=== PATIENT | male | born 1955 | race Caucasian/White ===

== ENCOUNTER 2016-09-12 16:36 | Observation (INO) | payer MEDICARE ==
[2016-09-12] VITALS (7 sets, daily range): BP systolic 115–153; BP diastolic 74–93; PULSE 82–96; RESP 18–22; TEMP 98.1–98.7; O2SAT 92–98
[~2016-09-12] VITALS: Ht 175.3 cm; Wt 103.0 kg
[~2016-09-12 16:36] MED LIST: ADVA500A INH; ASPI-110 PO; ATOR20TA15 PO; CLOP75TA PO; CYCL1TAB29 PO; FOLI1TAB4 PO; HYDR-3583 PO; HYDR200T3 PO; HYDR25TA5 PO; LISI-515 PO; METF-382 PO; METO25TA3 PO; MYCO500 PO; OMEP20TA PO; TAMS5CAP PO; VITA200013 PO
[2016-09-12] MEDS ORDERED: SODIUM CHLORIDE 0.9% FLUSH 10 ML FLUSH IVF PRN (16:45)
[2016-09-12] MEDS ORDERED: ASPIRIN 325 MG TAB PO ONE (16:45)
--- NOTE | 2016-09-12 17:32 | RADRPT ---
EXAM DATE/TIME: 09/12/2016 17:05 [place] COMPARISON: CHEST SINGLE AP, March 29, 2015, 15:58. INDICATIONS : Chest pain. MEDICAL HISTORY : Unobtainable. SURGICAL HISTORY : Unobtainable. ENCOUNTER: Initial ACUITY: 3 days PAIN SCORE: 5/10 LOCATION: Bilateral chest FINDINGS: A single view of the chest demonstrates the lungs to be symmetrically aerated without evidence of mas s, infiltrate or effusion. The cardiomediastinal contours are unremarkable. Osseous structures are intact. CONCLUSION: No acute disease. Gary Alexandre MD on September 12, 2016 at 17:30 Board Certified Radiologist. This report was verified electronically.
[2016-09-12 17:52] LABS: BASOPHIL % 0.5 % (0.0-2.0); EOSINOPHIL # 0.1 TH/MM3 (0-0.4); EOSINOPHIL % 0.7 % (0.0-4.0); HEMATOCRIT 36.5 % (39.0-51.0); HEMO FLAGS DIFF FINAL; LYMPH % 12.9 % (9.0-44.0); MEAN CELL VOLUME 85.7 FL (80.0-100.0); MEAN CORPUSCULAR HEMOGLOBIN 29.2 PG (27.0-34.0); MEAN CORPUSCULAR HGB CONC 34.1 % (32.0-36.0); NEUT % 76.9 % (16.0-70.0); PLATELET COUNT 194 TH/MM3 (150-450); RED BLOOD COUNT 4.26 MIL/MM3 (4.50-5.90); RED CELL DISTRIBUTION WIDTH 13.7 % (11.6-17.2); WHITE BLOOD COUNT 7.8 TH/MM3 (4.0-11.0)
[2016-09-12 18:05] LABS: APTT (PATIENT) 28.4 SEC (24.3-30.1); PROTHROMBIN TIME - PATIENT 10.9 SEC (9.8-11.6)
[2016-09-12 18:12] LABS: ANION GAP 7 MEQ/L (5-15); BICARBONATE 29.3 MEQ/L (21.0-32.0); BLOOD UREA NITROGEN 15 MG/DL (7-18); CHLORIDE 102 MEQ/L (98-107); GLOMERULAR FILTRATION RATE 83 ML/MIN (>89); MAGNESIUM 1.1 MG/DL (1.5-2.5); POTASSIUM 3.5 MEQ/L (3.5-5.1); SODIUM (NA) 138 MEQ/L (136-145)
[2016-09-12 18:16] LABS: CREATINE KINASE 184 U/L (39-308)
[2016-09-12 18:28] LABS: CKMB 1.1 NG/ML (0.5-3.6)
--- NOTE | 2016-09-12 18:28 | PD ---
HPI Chief Complaint: Chest Pain Time Seen by Provider: 18:28 Travel History International Travel<30 days: No Contact w/Intl Traveler<30days: No Traveled to known affect area: No History of Present Illness HPI 60-year-old male that presents to the ED for evaluation of chest pain. Patient came here by ambulance for evaluation of this. Patient states that his history of coronary artery disease with having had a STEMI in 2015. Patient has stents performed by Dr. Coon who is his supervisor records change. The patient the pain started around 10:00 any progressively gotten worse. Per patient when he started getting more severe and sharp he contacted the ambulance. Per patient by ambulance he was given 4 nitroglycerin's as well as aspirin with relief of his pain. Per patient the pain went from 8 to 2/10. He states that overall he felt better but the pain now appears to be more positional and gets worse when he takes deep breath as well as when he lays down. He has a history of lupus, hypertension, diabetes, previous history of smoking. Allergy to morphine. He denies any recent trauma or injury. No recent travel. No fevers chills or sweats. Per patient he went to see his doctor about 4-6 months ago and was told that everything was fine. He does not take any anticoagulation. PFSH Past Medical History Hx Anticoagulant Therapy: Yes (ASPIRIN ) Arthritis: Yes Asthma: Yes Autoimmune Disease: Yes (LUPUS) Blood Disorders: No Anxiety: No Depression: No Heart Rhythm Problems: No Cancer: No Cardiac Catheterization: Yes (STENT) Cardiovascular Problems: Yes (OK ) High Cholesterol: Yes Congestive Heart Failure: No Diabetes: Yes Patient Takes Glucophage: Yes Diminished Hearing: Yes Endocrine: Yes GERD: Yes Genitourinary: No Hiatal Hernia: Yes Hypertension: Yes Immune Disorder: Yes (LUPUS) Implanted Vascular Access Dvce: No Musculoskeletal: Yes Neurologic: No Psychiatric: Yes (CLAUSTRoPHOBIA) Reproductive: No Respiratory: Yes (pleuritis and pericarditis per the pt) Immunizations Current: Yes Tetanus Vaccination: Unknown Influenza Vaccination: Yes ?: Not Past Surgical History Abdominal Surgery: Yes (RIGHT ING. HERNIA REP. (X3), APPY) AICD: No Appendectomy: Yes Arteriovenous Shunt: No (stent) Body Medical Devices: LUMBAR HARDWARE, CARDIAC STENT, BACK FUSION Coronary Artery Bypass Graft: No Insulin Pump: No Joint Replacement: No Neurologic Surgery: Yes (MULTIPLE BACK SURGERIES, LUMBAR FUSION) Pacemaker: No Other Surgery: Yes Social History Alcohol Use: Yes (OCC.) Tobacco Use: No Substance Use: No Allergies-Medications (Allergen,Severity, Reaction): Coded Allergies: Morphine (Verified Allergy, Severe, Respiratory Failure, 08/08/16) Reported Meds & Prescriptions Reported Meds & Active Scripts Active Flomax (Tamsulosin HCl) 0.4 Mg Cap 0.4 Mg PO HS Reported Cellcept (Mycophenolate Mofetil) 500 Mg Tab 500 Mg PO BID Vitamin D (Cholecalciferol) 2,000 Unit Cap 2,000 Mg PO DAILY Hydrochlorothiazide 25 Mg Tab 25 Mg PO DAILY Atorvastatin (Atorvastatin Calcium) 20 Mg Tab 20 Mg PO HS Metoprolol Tartrate 25 Mg Tab 25 Mg PO BID Aspirin 81 (Aspirin) 81 Mg Tabdr 81 Mg PO DAILY Folate (Folic Acid) 1 Mg Tab 1 Mg PO DAILY Advair Diskus Inh (Fluticasone-Salmeterol Inh) 500-50 Mcg/Blist Aer 1 Puff INH BID Rinse mouth after use. Hydroxychloroquine (Hydroxychloroquine Sulfate) 200 Mg Tab 200 Mg PO BID Takw with food Lisinopril 20 Mg Tab 20 Mg PO DAILY Omeprazole 20 Mg Tab 20 Mg PO DAILY Flexeril (Cyclobenzaprine HCl) 10 Mg Tab 10 Mg PO Q8HR Metformin ER (Metformin HCl) 1,000 Mg Tj 1,000 Mg PO BID With evening meal Hydrocodone-Acetaminophen 10-325 mg Tab 1 Tab PO Q8HR PRN Review of Systems Except as stated in HPI: all other systems reviewed are Neg Physical Exam Narrative GENERAL: SKIN: Warm and dry. HEAD: Atraumatic. Normocephalic. EYES: Pupils equal and round. No scleral icterus. No injection or drainage. ENT: No nasal bleeding or discharge. Mucous membranes pink and moist. Tongue is midline. No uvula deviation. NECK: Trachea midline. No JVD. CARDIOVASCULAR: Regular rate and rhythm. No murmurs, S3, S4. Chest pain is not reproducible with touch. RESPIRATORY: No accessory muscle use. Clear to auscultation. Breath sounds equal bilaterally. GASTROINTESTINAL: Abdomen soft, non-tender, nondistended. Hepatic and splenic margins not palpable. MUSCULOSKELETAL: Extremities without clubbing, cyanosis, or edema. No obvious deformities. Full range of motion of the upper and lower extremities bilaterally. 2+ pulses bilaterally. NEUROLOGICAL: Awake and alert. No obvious cranial nerve deficits. Motor grossly within normal limits. Five out of 5 muscle strength in the arms and legs. Normal speech. PSYCHIATRIC: Appropriate mood and affect; insight and judgment normal. Data Data Last Documented VS Vital Signs Date Time Temp Pulse Resp B/P Pulse Ox O2 Delivery O2 Flow Rate FiO2 09/12/16 17:30 88 22 127/74 98 Nasal Cannula 4 09/12/16 16:55 98.7 Orders Electrocardiogram (09/12/16 16:41) Basic Metabolic Panel (Bmp) (09/12/16 16:41) Ckmb (Isoenzyme) Profile (09/12/16 16:41) Complete Blood Count With Diff (09/12/16 16:41) Magnesium (Mg) (09/12/16 16:41) Prothrombin Time / Inr (Pt) (09/12/16 16:41) Act Partial Throm Time (Ptt) (09/12/16 16:41) Troponin I (09/12/16 16:41) Chest, Single Ap (09/12/16 16:41) Ecg Monitoring (09/12/16 16:41) Bilateral Bp Monitoring (09/12/16 16:41) Iv Access Insert/Monitor (09/12/16 16:41) Oximetry (09/12/16 16:41) Oxygen Administration (09/12/16 16:41) Aspirin (Aspirin) (09/12/16 16:45) Sodium Chloride 0.9% Flush (Ns Flush) (09/12/16 16:45) CKMB (09/12/16 17:07) CKMB% (09/12/16 17:07) Labs Laboratory Tests Test 09/12/16 17:07 White Blood Count 7.8 TH/MM3 Red Blood Count 4.26 MIL/MM3 Hemoglobin 12.4 GM/DL Hematocrit 36.5 % Mean Corpuscular Volume 85.7 FL Mean Corpuscular Hemoglobin 29.2 PG Mean Corpuscular Hemoglobin 34.1 % Concent Red Cell Distribution Width 13.7 % Platelet Count 194 TH/MM3 Mean Platelet Volume 7.3 FL Neutrophils (%) (Auto) 76.9 % Lymphocytes (%) (Auto) 12.9 % Monocytes (%) (Auto) 9.0 % Eosinophils (%) (Auto) 0.7 % Basophils (%) (Auto) 0.5 % Neutrophils # (Auto) 6.0 TH/MM3 Lymphocytes # (Auto) 1.0 TH/MM3 Monocytes # (Auto) 0.7 TH/MM3 Eosinophils # (Auto) 0.1 TH/MM3 Basophils # (Auto) 0.0 TH/MM3 CBC Comment DIFF FINAL Differential Comment Prothrombin Time 10.9 SEC Prothromb Time International 1.0 RATIO Ratio Activated Partial 28.4 SEC Thromboplast Time Sodium Level 138 MEQ/L Potassium Level 3.5 MEQ/L Chloride Level 102 MEQ/L Carbon Dioxide Level 29.3 MEQ/L Anion Gap 7 MEQ/L Blood Urea Nitrogen 15 MG/DL Creatinine 0.93 MG/DL Estimat Glomerular Filtration 83 ML/MIN Rate Random Glucose 114 MG/DL Calcium Level 8.9 MG/DL Magnesium Level 1.1 MG/DL Total Creatine Kinase 184 U/L Creatine Kinase MB 1.1 NG/ML Troponin I LESS THAN 0.02 NG/ML MDM Medical Decision Making Medical Screen Exam Complete: Yes Emergency Medical Condition: Yes Medical Record Reviewed: Yes Interpretation(s) EKG showed junctional rhythm with no sign of acute ischemia or arrhythmia read by me and attending. CBC & BMP Diagram 09/12/16 17:07 Troponin and CK-MB negative. Last Impressions Chest X-Ray 09/12/16 1641 Signed Impressions: Service Date/Time: Saturday, September 12, 2016 17:05 - CONCLUSION: No acute disease. Gary Alexandre MD Differential Diagnosis Chest pain versus a typical chest pain versus ACS versus coronary artery disease versus electrolyte abnormality versus pneumonia versus pleurisy Narrative Course 60-year-old male that presents to the ED for evaluation of chest pain. Patient was properly examined and was found to have signs and symptoms concerning for coronary artery disease. Labs and imaging were ordered. Labs and EKG were essentially unremarkable. A call was placed to Dr. Coon his supervisor records change. Unfortunately we were not able to get a call back from him. At this time because of patient's risk factors and comorbidities and the recommend admission to the chest pain center. This was discussed with the patient who agrees to admission. Case discussed in my attending who agrees with plan. Patient was admitted to the chest pain center. Procedures EKG Prior to Arrival: Yes Diagnosis Primary Impression: Chest pain Qualified Code: R07.9 - Chest pain, unspecified type Admitting Information Admitting Physician Requests: Observation Jorden Branch Sep 12, 2016 18:28
[2016-09-12] MEDS ORDERED: ACETAMINOPHEN/HYDROcodone 325 MG/5 MG TAB PO ONE (19:30)
[2016-09-12] MEDS ORDERED: NITROGLYCERIN 0.4 MG SL 25 TABS/BTL SL ONE (19:30)
[2016-09-12] MEDS ORDERED: DEXAMETHASONE SOD PHOS 20 MG/5 ML VIAL IV PUSH ONE (19:30)
[2016-09-12] MEDS ORDERED: ACETAMINOPHEN 500 MG CPLT PO PRN (19:30)
[2016-09-12] MEDS ORDERED: ACETAMINOPHEN/HYDROcodone 325 MG/7.5 MG TAB PO PRN (19:30)
[2016-09-12 20:18] LABS: CREATINE KINASE 167 U/L (39-308)
[2016-09-12 20:30] LABS: CKMB 0.6 NG/ML (0.5-3.6)
[2016-09-12] MEDS: NITROGLYCERIN 2% OINT 1 GM PACKET TOP SCH (23:37)
[2016-09-12 23:53] LABS: CREATINE KINASE 147 U/L (39-308)
[2016-09-13 00:07] LABS: CKMB 0.8 NG/ML (0.5-3.6)
[2016-09-13 04:00] VITALS: BP 125/80; PULSE 73
[2016-09-13] MEDS: NITROGLYCERIN 2% OINT 1 GM PACKET TOP SCH (06:00)
[2016-09-13 07:47] VITALS: BP 129/79; PULSE 69; RESP 18; TEMP 97.4; O2SAT 96
[2016-09-13] MEDS ORDERED: NITROGLYCERIN 0.4 MG SL 25 TABS/BTL SL PRN (09:00)
[2016-09-13] MEDS ORDERED: ACETAMINOPHEN 500 MG CPLT PO PRN (09:00)
[2016-09-13] MEDS ORDERED: ONDANSETRON HCL 4 MG/2 ML VIAL IV PRN (09:00)
[2016-09-13] MEDS ORDERED: ACETAMINOPHEN/HYDROcodone 325 MG/10 MG TAB PO ONE (09:15)
--- NOTE | 2016-09-13 09:36 | HHI.HP ---
HPI Primary Care Physician Kvng Jacobsen MD, PhD Chief Complaint Chest pain History of Present Illness 60-year-old patient with known coronary artery disease, hypertension, diabetes, hyperlipidemia, and lupus presents to emergency room for further evaluation of chest discomfort. Onset yesterday at 10 AM. Location substernal. Characterized as a sharp constant pain that increased over time. Duration hours. Nonexertional. Associated symptoms included "lightheadedness and shaky. " Denies associated symptoms of nausea, vomiting, or diaphoresis. Breathing makes pain worse. No precipitating factors. Received nitroglycerin 4 in route without relief. Relieving factors he states was "steroid shot provided in the ER." Currently chest discomfort 06/12. Initially chest discomfort was 8/ 10. Endorses history of pleurisy. Due to his history of coronary artery disease he was concerned and came to the ER for further evaluation, however now states he believes chest discomfort was related to pleurisy as he has had 3 episodes of pleurisy recently. History of lupus his bank messenger is Dr. Hampton. Review of Systems General: No fatigue,weakness, fever, chills, recent illness, or change in appetite HEENT: No CISNEROS, no vision changes, no nasal congestion or drainage, no dysphasia CV: As stated above. Currently mild chest pain 1, much improved since receiving steroid injection. Chest discomfort prior to cardiac catheterization in 2014 included diaphoresis and shortness of breath with chest discomfort similar to his pleurisy but more severe. No pressure, palpitations, intermittent leg pain, or dizziness. RESP: No SOB, cough, wheeze, or recent URI GI: No nausea, vomiting, bowel changes, diarrhea, constipation, pain, distention , melena, blood in the stool. No unintentional weight gain or weight loss : No dysuria, urgency, frequency EXT: No lower leg edema, no paraesthesias MS: No discomfort or change in ROM NEURO: No change in memory, dizziness, difficulty with balance, LOC, motor/ sensory deficits PSYCH: No anxiety or depression, SKIN: No rashes, no concerning lesions Past Family Social History Allergies: Coded Allergies: Morphine (Verified Allergy, Severe, Respiratory Failure, 08/08/16) Past Medical History Coronary artery disease, lupus, diabetes, hypertension, arthritis, hyperlipidemia Past Surgical History Appendectomy, 4 hernia repairs, 4 back surgeries, 2 back fusions, right hip repair Reported Medications Reported Meds & Active Scripts Active Flomax (Tamsulosin HCl) 0.4 Mg Cap 0.4 Mg PO HS Cellcept (Mycophenolate Mofetil) 500 Mg Tab 500 Mg PO BID Vitamin D (Cholecalciferol) 2,000 Unit Cap 2,000 Mg PO DAILY Hydrochlorothiazide 25 Mg Tab 25 Mg PO DAILY Atorvastatin (Atorvastatin Calcium) 20 Mg Tab 20 Mg PO HS Metoprolol Tartrate 25 Mg Tab 25 Mg PO BID Aspirin 81 (Aspirin) 81 Mg Tabdr 81 Mg PO DAILY Folate (Folic Acid) 1 Mg Tab 1 Mg PO DAILY Advair Diskus Inh (Fluticasone-Salmeterol Inh) 500-50 Mcg/Blist Aer 1 Puff INH BID Rinse mouth after use. Hydroxychloroquine (Hydroxychloroquine Sulfate) 200 Mg Tab 200 Mg PO BID Takw with food Lisinopril 20 Mg Tab 20 Mg PO DAILY Omeprazole 20 Mg Tab 20 Mg PO DAILY Flexeril (Cyclobenzaprine HCl) 10 Mg Tab 10 Mg PO Q8HR Metformin ER (Metformin HCl) 1,000 Mg Tj 1,000 Mg PO BID With evening meal Hydrocodone-Acetaminophen 10-325 mg Tab 1 Tab PO Q8HR PRN Active Ordered Medications Current Medications Medications (Trade) Dose Ordered Sig/Lucila Route Start Time Stop Time Status Last Admin (Tylenol) 500 mg Q4H PRN PO 09/12/16 19:30 ([place] 7.5-325 Mg) 1 tab Q4H PRN PO 09/12/16 19:30 (Tylenol) 500 mg Q4H PRN PO 09/13/16 09:00 (Zofran Inj) 4 mg Q6H PRN IV 09/13/16 09:00 (Nitrostat Sl) 0.4 mg Q5M PRN SL 09/13/16 09:00 (Aspirin) 325 mg DAILY PO 09/13/16 10:00 (Lipitor) 20 mg HS PO 09/13/16 21:00 (Folate) 1 mg DAILY PO 09/13/16 09:00 UNV (Hydrodiuril) 25 mg DAILY PO 09/13/16 09:00 UNV (Plaquenil) 200 mg BID PO 09/13/16 09:00 UNV (Prinivil) 20 mg DAILY PO 09/13/16 09:00 UNV (Cellcept) 500 mg BID PO 09/13/16 09:00 UNV (Flomax) 0.4 mg HS PO 09/13/16 21:00 UNV Non-Formulary Medication 2,000 mg DAILY PO 09/13/16 09:00 UNV Non-Formulary Medication 1 puff BID INH 09/13/16 09:00 UNV Non-Formulary Medication 1,000 mg BID PO 09/13/16 09:00 UNV Non-Formulary Medication 20 mg DAILY PO 09/13/16 09:00 UNV Social History , disabled, Quit smoking in 2003prior to quitting, smoked 2 packs daily 33 years. Denies any alcohol or illegal drug use. Active as he is able with his chronic back pain. Past cardiac testing 03/29/15-cardiac catheterization. 1. PTCA and stenting of a totally occluding RCA. 2. Preserved LV function. 3. Mild nonobstructive disease in the LAD and circumflex arteries. No recent stress testing. 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 Codey Coon. Physical Exam Vital Signs Vital Signs Date Time Temp Pulse Resp B/P Pulse Ox O2 Delivery O2 Flow Rate FiO2 09/13/16 07:47 97.4 69 18 129/79 96 09/13/16 04:00 73 125/80 09/12/16 22:55 98.1 82 18 115/75 98 09/12/16 20:29 14 09/12/16 20:10 98.6 88 18 133/75 98 09/12/16 19:59 98 Nasal Cannula 4.00 09/12/16 19:14 96 22 153/93 98 Nasal Cannula 4 09/12/16 17:30 88 22 127/74 98 Nasal Cannula 4 09/12/16 16:55 22 98 Nasal Cannula 4 09/12/16 16:55 98 Nasal Cannula 4 09/12/16 16:55 98.7 90 22 132/75 98 Nasal Cannula 4 09/12/16 16:55 92 22 99 Nasal Cannula 4 09/12/16 16:45 98.7 92 20 132/75 92 Physical Exam GENERAL: Alert WN, WD, NAD, pleasant, male HEAD: NC, AT EYES: Sclera clear, conjunctiva without injection, pupils equal and round NECK: Supple, no masses, trachea midline CV: RRR, without murmur, rub, gallop, no JVD, S1-S2 no S3-S4. RESP: Clear lungs throughout bilateral, no crackles, wheeze, rhonchi, symmetrical chest rise, nonlabored, able to speak in full sentences ABD: Soft, NT, ND, no masses, positive bowel tones EXT: Pulses +24, no dependent edema MS: Normal tone 4 extremities, nontender, no obvious deformities, full range of motion NEURO: CN II through CN XII grossly intact, motor strength 5/5, gait WNL PSYCH: A+O 3, pleasant affect, appropriate speech, appropriate mood and affect , insight and judgment SKIN: Normal turgor, normal texture, no lesions, no rashes, brisk cap refill, even hair distribution Laboratory Laboratory Tests Test 09/12/16 09/12/16 09/12/16 17:07 19:45 22:51 White Blood Count 7.8 Red Blood Count 4.26 Hemoglobin 12.4 Hematocrit 36.5 Mean Corpuscular Volume 85.7 Mean Corpuscular Hemoglobin 29.2 Mean Corpuscular Hemoglobin 34.1 Concent Red Cell Distribution Width 13.7 Platelet Count 194 Mean Platelet Volume 7.3 Neutrophils (%) (Auto) 76.9 Lymphocytes (%) (Auto) 12.9 Monocytes (%) (Auto) 9.0 Eosinophils (%) (Auto) 0.7 Basophils (%) (Auto) 0.5 Neutrophils # (Auto) 6.0 Lymphocytes # (Auto) 1.0 Monocytes # (Auto) 0.7 Eosinophils # (Auto) 0.1 Basophils # (Auto) 0.0 CBC Comment DIFF FINAL Differential Comment Prothrombin Time 10.9 Prothromb Time International 1.0 Ratio Activated Partial 28.4 Thromboplast Time Sodium Level 138 Potassium Level 3.5 Chloride Level 102 Carbon Dioxide Level 29.3 Anion Gap 7 Blood Urea Nitrogen 15 Creatinine 0.93 Estimat Glomerular Filtration 83 Rate Random Glucose 114 Calcium Level 8.9 Magnesium Level 1.1 Total Creatine Kinase 184 167 147 Creatine Kinase MB 1.1 0.6 0.8 Troponin I LESS THAN 0.02 LESS THAN 0.02 LESS THAN 0.02 Result Diagram: 09/12/16 1707 09/12/16 170 Imaging Last Impressions Chest X-Ray 09/12/16 1641 Signed Impressions: Service Date/Time: Monday, September 12, 2016 17:05 - CONCLUSION: No acute disease. Gary Alexandre MD Course EKGs 3 EKG show normal sinus rhythm, inferior RI, no ST or T-segment changes Assessment and Plan Assessment and Plan #1 Chest painadmitted to chest pain center. Ruled out with 3 sets of EKGs, cardiac enzymes, and monitored overnight. Seen and evaluated by Dr. Pina Ibarra. Patient has had a recent cardiac catheterization pared with atypical symptoms Dr Ibarra discussed with patient possible discharge after notifying his petroleum supply specialist of arrival. Spoke with patient's petroleum supply specialist , Dr. Codey Coon. Methane Gas Collection System Operator okay with discharge as chest discomfort is not similar to chest discomfort prior to cardiac catheterization and chest discomfort improved with Decadron. Instructed to return to ER if chest pain worsens. #2 Pleurisy-Medrol Dosepak, follow with PCP and bank messenger #3 Lupuscontinue Plaquenil and CellCept #4 Hypertensioncontinue HCTZ and lisinopril #5 CADcontinue aspirin, atorvastatin, and Metoprolol. Follow up with petroleum supply specialist. #6 Diabetescontinue metformin #7 Chronic back paincontinue hydrocodone/[id number]/325mg 1 dose. Kayla Estrada Sep 13, 2016 09:36
[2016-09-13] MEDS ORDERED: MEDR4PAK PO (09:47)
--- NOTE | 2016-09-13 09:48 | HHI.DCPOC ---
Discharge Care Plan Diagnosis: (1) Atypical chest pain (2) History of pleurisy (3) Hx of coronary artery disease (4) SLE (systemic lupus erythematosus) (5) HTN (hypertension) (6) DM (diabetes mellitus) Goals to Promote Your Health * To prevent worsening of your condition and complications * To maintain your health at the optimal level Directions to Meet Your Goals Take your medications as prescribed Follow your dietary instruction Follow activity as directed Keep your appointments as scheduled Take your immunizations and boosters as scheduled If your symptoms worsen call your PCP, if no PCP go to Urgent Care Center or Emergency Room Smoking is Dangerous to Your Health. Avoid second hand smoke Call the 24-hour hour crisis hotline for domestic abuse at Kayla Estrada Sep 13, 2016 09:48
[2016-09-13] MEDS ORDERED: FOLIC ACID 1 MG TAB PO SCH (10:00)
[2016-09-13] MEDS ORDERED: ASPIRIN 325 MG TAB PO SCH (10:00)
[2016-09-13] MEDS ORDERED: CHOLECALCIFEROL (VIT D3) 1000 UNIT TAB PO SCH (10:00)
[2016-09-13] MEDS ORDERED: metFORMIN HCL 500 MG TAB PO SCH (10:00)
[2016-09-13] MEDS ORDERED: LISINOPRIL 20 MG TAB PO SCH (10:00)
[2016-09-13] MEDS ORDERED: HYDROXYCHLOROQUINE SULFATE 200 MG TAB PO SCH (10:00)
[2016-09-13] MEDS ORDERED: HYDROCHLOROTHIAZIDE 25 MG TAB PO SCH (10:00)
[2016-09-13] MEDS ORDERED: MYCOPHENOLATE MOFETIL 500 MG TAB PO SCH (10:00)
[2016-09-13] MEDS ORDERED: PANTOPRAZOLE SOD 20 MG DELAYED RELEASE TAB PO SCH (10:15)
[2016-09-13] MEDS ORDERED: BUDESONIDE-FORMOTEROL 160/4.5 MCG INHALER INH SCH (11:00)
[2016-09-13] MEDS ORDERED: ATORVASTATIN 20 MG TAB PO SCH (21:00)
[2016-09-13] MEDS ORDERED: TAMSULOSIN HCL 0.4 MG CAP PO SCH (21:00)
--- NOTE | 2016-09-14 11:39 | EKG ---
Date Performed: 09/12/2016 Time Performed: 23:04:04 PTAGE: 60 years EKG: Sinus rhythm POSSIBLE LATERAL MYOCARDIAL INFARCTION INFERIOR MYOCARDIAL INFARCTION ABNORMAL ECG Since PREVIOUS TRACING , no significant change noted PREVIOUS TRACIN09/12/2016 19.49 DOCTOR: Pina Ibarra Interpretating Date/Time 09/14/2016 11:37:54
--- NOTE | 2016-09-14 11:40 | EKG ---
Date Performed: 09/12/2016 Time Performed: 19:49:56 PTAGE: 60 years EKG: Ectopic atrial rhythm INFERIOR MYOCARDIAL INFARCTION ABNORMAL ECG PREVIOUS TRACING : 09/12/2016 17.05 DOCTOR: Pina Ibarra Interpretating Date/Time 09/14/2016 11:39:27
--- NOTE | 2016-09-14 11:40 | EKG ---
Date Performed: 09/12/2016 Time Performed: 17:05:31 PTAGE: 60 years EKG: Ectopic atrial rhythm INFERIOR MYOCARDIAL INFARCTION ABNORMAL ECG Since PREVIOUS TRACING , no significant change noted PREVIOUS TRACIN03/30/2015 05.58 DOCTOR: Pina Ibarra Interpretating Date/Time 09/14/2016 11:39:06
[2016-10-08] MEDS ORDERED: TAMS5CAP PO (09:11)
== END 2016-09-13 11:05 | disposition home or self-care (01) ==
LOC: NEPE 16:36 → NEDA 19:15 → NEPFCDU 19:58
PROVIDERS: ADMIT Internal Medicine Cardiovascular Disease; ATTEND Internal Medicine Cardiovascular Disease
DX: R07.89 Other chest pain (principal); I25.10 Atherosclerotic heart disease of native coronary artery without angina pectoris; E11.9 Type 2 diabetes mellitus without complications; I10 Essential (primary) hypertension; R09.1 Pleurisy; M32.9 Systemic lupus erythematosus, unspecified; G89.29 Other chronic pain; M54.9 Dorsalgia, unspecified; E78.5 Hyperlipidemia, unspecified; I25.2 Old myocardial infarction; M19.90 Unspecified osteoarthritis, unspecified site; H91.90 Unspecified hearing loss, unspecified ear; E78.00 Pure hypercholesterolemia, unspecified; K21.9 Gastro-esophageal reflux disease without esophagitis; J45.909 Unspecified asthma, uncomplicated; Z79.51 Long term (current) use of inhaled steroids; Z88.5 Allergy status to narcotic agent; Z87.891 Personal history of nicotine dependence; Z79.82 Long term (current) use of aspirin; Z79.84 Long term (current) use of oral hypoglycemic drugs
CPT/HCPCS: 71010; 80048; 82550; 82552; 83735; 84484; 85025; 85610; 85730; 93005; 99285; G0378; J1100

== ENCOUNTER 2017-04-12 05:34 | Emergency (ER) | payer MEDICARE ==
[~2017-04-12] VITALS: Ht 175.3 cm; Wt 100.0 kg
[~2017-04-12 05:34] MED LIST changes: -ASPI-110 PO; +ASPI1TAB57 PO; -CLOP75TA PO; +CYCL10TA PO; -CYCL1TAB29 PO; -OMEP20TA PO; +OMEP20TA93 PO
[2017-04-12 05:36] VITALS: BP 202/94; PULSE 85; RESP 20; TEMP 97.7; O2SAT 99
[2017-04-12] MEDS ORDERED: KETOROLAC TROMETHAMINE 30 MG/ML (IVP) VIAL IV PUSH ONE (05:45)
[2017-04-12] MEDS ORDERED: SODIUM CHLOR 0.9% 1000 ML INJ 1,000 ML IV ONE (05:45)
[2017-04-12] MEDS ORDERED: FOLI400T PO (05:54)
[2017-04-12 06:25] VITALS: BP 140/68; PULSE 78; RESP 16; O2SAT 97
--- NOTE | 2017-04-12 06:30 | PD ---
HPI Chief Complaint: Abdominal Pain Time Seen by Provider: 05:37 Travel History International Travel<30 days: No Contact w/Intl Traveler<30days: No Traveled to known affect area: No History of Present Illness HPI Patient is a 60-year-old man sudden onset of severe lower abdominal pain right above his pubic symphysis>> he has a history of having some back issues and he said his had worsening of his back lumbar pain>> but this is a sudden onset and different in nature . he has multiple medical issues and he has a chronic pain issue as well> In the ER he is writhing in pain turning side to side in the stretcher running a comfortable position. He present the way kidney stones present . He has had a kidney stone in the past and he presents as if he will have a kidney stone again> I order IV fluid Toradol [address] ordered right away labs will be ordered. Pain is localized to lower abdo no radiation took nothing for the pain , has not seen another MD for this pain, started Just HAIR CUTTER PFSH Past Medical History Hx Anticoagulant Therapy: Yes (ASPIRIN ) Arthritis: Yes Asthma: Yes Autoimmune Disease: Yes (LUPUS) Blood Disorders: No Anxiety: No Depression: No Heart Rhythm Problems: No Cancer: No Cardiac Catheterization: Yes (STENT X2) Cardiovascular Problems: Yes High Cholesterol: Yes Chest Pain: Yes Congestive Heart Failure: No Diabetes: No Diminished Hearing: Yes ([place]) Endocrine: Yes GERD: Yes Genitourinary: No Hiatal Hernia: Yes Hypertension: Yes Immune Disorder: Yes (LUPUS) Implanted Vascular Access Dvce: No Musculoskeletal: Yes Neurologic: No Psychiatric: Yes (CLAUSTRoPHOBIA) Reproductive: No Respiratory: Yes (pleuritis and pericarditis per the pt) Immunizations Current: Yes Tetanus Vaccination: Unknown Past Surgical History Abdominal Surgery: Yes (RIGHT ING. HERNIA REP. (X3), APPY) AICD: No Appendectomy: Yes Arteriovenous Shunt: No (stent) Body Medical Devices: LUMBAR HARDWARE, CARDIAC STENT, BACK FUSION Coronary Artery Bypass Graft: No Insulin Pump: No Joint Replacement: No Neurologic Surgery: Yes (MULTIPLE BACK SURGERIES, LUMBAR FUSION) Pacemaker: No Other Surgery: Yes Family History Family Myocardial Infarction: Yes (Father had VT ) Social History Alcohol Use: Yes (OCC.) Tobacco Use: No Substance Use: No Allergies-Medications (Allergen,Severity, Reaction): Coded Allergies: morphine (Unverified Allergy, Severe, Respiratory Failure, 04/12/17) Reported Meds & Prescriptions Reported Meds & Active Scripts Active Naproxen 375 Mg Tab 375 Mg PO BID K-Tab (Potassium Chloride) 10 Meq Tab 10 Meq PO BID Flomax (Tamsulosin HCl) 0.4 Mg Cap 0.4 Mg PO HS Reported Folic Acid 0.4 Mg Tab 1 Mg PO DAILY Cellcept (Mycophenolate Mofetil) 500 Mg Tab 500 Mg PO BID Vitamin D (Cholecalciferol) 2,000 Unit Cap 2,000 Mg PO DAILY Hydrochlorothiazide 25 Mg Tab 25 Mg PO DAILY Atorvastatin (Atorvastatin Calcium) 20 Mg Tab 20 Mg PO HS Metoprolol Tartrate 25 Mg Tab 25 Mg PO BID Aspirin 81 (Aspirin) 81 Mg Tabdr 81 Mg PO DAILY Advair Diskus Inh (Fluticasone-Salmeterol Inh) 500-50 Mcg/Blist Aer 1 Puff INH BID Rinse mouth after use. Hydroxychloroquine (Hydroxychloroquine Sulfate) 200 Mg Tab 200 Mg PO BID Takw with food Lisinopril 20 Mg Tab 20 Mg PO DAILY Omeprazole 20 Mg Tab 20 Mg PO DAILY Flexeril (Cyclobenzaprine HCl) 10 Mg Tab 10 Mg PO Q8HR Metformin ER (Metformin HCl) 1,000 Mg Tj 1,000 Mg PO BID With evening meal Hydrocodone-Acetaminophen 10-325 mg Tab 1 Tab PO Q8HR PRN Review of Systems Except as stated in HPI: all other systems reviewed are Neg Gastrointestinal: Positive: Nausea, Abdominal Pain Physical Exam Narrative GENERAL: writhing in pain holding his abdomen SKIN: Warm and dry. HEAD: Atraumatic. Normocephalic. EYES: Pupils equal and round. No scleral icterus. No injection or drainage. ENT: No nasal bleeding or discharge. Mucous membranes pink and moist. NECK: Trachea midline. No JVD. CARDIOVASCULAR: Regular rate and rhythm. RESPIRATORY: No accessory muscle use. Clear to auscultation. Breath sounds equal bilaterally. GASTROINTESTINAL: Abdomen tender suprapubic area , Hepatic and splenic margins not palpable. MUSCULOSKELETAL: Extremities without clubbing, cyanosis, or edema. No obvious deformities. NEUROLOGICAL: Awake and alert. No obvious cranial nerve deficits. Motor grossly within normal limits. Five out of 5 muscle strength in the arms and legs. Normal speech. PSYCHIATRIC: Appropriate mood and affect; insight and judgment normal. Data Data Last Documented VS Vital Signs Date Time Temp Pulse Resp B/P (MAP) Pulse Ox O2 Delivery O2 Flow Rate FiO2 04/12/17 08:14 16 151/85 (107) 96 Room Air 04/12/17 06:25 78 04/12/17 05:36 97.7 Orders Orders Sodium Chlor 0.9% 1000 Ml Inj (Ns 1000 M (04/12/17 05:45) Ketorolac Inj (Toradol Inj) (04/12/17 05:45) Ct Abd/Pel W/O Iv Contrast (04/12/17 ) Complete Blood Count With Diff (04/12/17 06:13) Comprehensive Metabolic Panel (04/12/17 06:13) Lipase (04/12/17 06:13) Ed Discharge Order (04/12/17 09:53) Potassium Chloride Eff (K-Lyte Cl Eff) (04/12/17 10:15) Labs Laboratory Tests Test 04/12/17 06:15 White Blood Count 6.3 TH/MM3 Red Blood Count 4.43 MIL/MM3 Hemoglobin 13.1 GM/DL Hematocrit 37.2 % Mean Corpuscular Volume 84.0 FL Mean Corpuscular Hemoglobin 29.5 PG Mean Corpuscular Hemoglobin Concent 35.1 % Red Cell Distribution Width 13.4 % Platelet Count 210 TH/MM3 Mean Platelet Volume 7.2 FL Neutrophils (%) (Auto) 60.2 % Lymphocytes (%) (Auto) 26.2 % Monocytes (%) (Auto) 11.3 % Eosinophils (%) (Auto) 1.5 % Basophils (%) (Auto) 0.8 % Neutrophils # (Auto) 3.8 TH/MM3 Lymphocytes # (Auto) 1.7 TH/MM3 Monocytes # (Auto) 0.7 TH/MM3 Eosinophils # (Auto) 0.1 TH/MM3 Basophils # (Auto) 0.0 TH/MM3 CBC Comment DIFF FINAL Differential Comment Blood Urea Nitrogen 17 MG/DL Creatinine 1.06 MG/DL Random Glucose 222 MG/DL Total Protein 7.5 GM/DL Albumin 3.8 GM/DL Calcium Level 8.5 MG/DL Alkaline Phosphatase 61 U/L Aspartate Amino Transf (AST/SGOT) 21 U/L Alanine Aminotransferase (ALT/SGPT) 36 U/L Total Bilirubin 0.5 MG/DL Sodium Level 136 MEQ/L Potassium Level 3.0 MEQ/L Chloride Level 99 MEQ/L Carbon Dioxide Level 27.0 MEQ/L Anion Gap 10 MEQ/L Estimat Glomerular Filtration Rate 72 ML/MIN Lipase 213 U/L MDM Medical Decision Making Medical Screen Exam Complete: Yes Emergency Medical Condition: Yes Differential Diagnosis renal colic vs back pinched nerve , vs constipation and colitis , or BPH and UTI. renal colic highest on DDx Narrative Course CT shows a 2 mm stone and it correlates with pain and sudden onset . he has total relief from toradol IV and fluids and is able to be d/c with close urology follow up and pain ,management Diagnosis Primary Impression: Kidney calculus Scripts Naproxen (Naproxen) 375 Mg Tab 375 MG PO BID, #10 TAB 0 Refills Prov: Constantine Abbott MD 04/12/17 Potassium Chloride ER (K-Tab) 10 Meq Tab 10 MEQ PO BID for Electrolyte Replacement, #6 TAB 0 Refills Prov: Constantine Abbott MD 04/12/17 Disposition: 01 DISCHARGE HOME Condition: Good Rex Aj MD Apr 12, 2017 06:30
--- NOTE | 2017-04-12 06:43 | RADRPT ---
EXAM DATE/TIME: 04/12/2017 06:19 [facility] COMPARISON: No previous studies available for comparison. INDICATIONS : Lower pelvic pain. Evaluate for renal stone. ORAL CONTRAST: No oral contrast ingested. RADIATION DOSE: 24.24 CTDIvol (mGy) MEDICAL HISTORY : Renal calculi. Gastroesophageal reflux disease. Lupus.Hiatal hernia. Inguinal hernia. CO. Hypertensio n. SURGICAL HISTORY : Fusion, lumbar. Inguinal hernia repair.Appendectomy.Right total hip. ENCOUNTER: Initial ACUITY: 1 day PAIN SCALE: 9/10 LOCATION: Left lower quadrant TECHNIQUE: Volumetric scanning of the abdomen and pelvis was performed. Using automated exposure control and ad justment of the mA and/or kV according to patient size, radiation dose was kept as low as reasonably achievable to obtain optimal diagnostic quality images. DICOM format image data is available electro nically for review and comparison. FINDINGS: Examination of the lung bases demonstrates no abnormality. No pleural fluid is identified. No pulmona ry nodules are present. The liver and spleen are normal in size and no focal defects are identified. The gallbladder and pancreas are unremarkable. No intrahepatic or extrahepatic ductal dilatation is s een. The adrenal glands are unremarkable. There is mild right hydronephrosis with a 2 mm stone in the distal right ureter. Nonobstructing stone is also present in the lower poles of both kidneys measuri ng 3 mm. Examination of the pelvis demonstrates no evidence of free fluid or pelvic mass. No abnormally enlarg ed inguinal or retroperitoneal lymph nodes are present. The bladder is unremarkable. There is diverti culosis without evidence of diverticulitis. The prostate gland is moderately enlarged impinging on th e bladder base. CONCLUSION: 1. 2 mm distal right ureteral stone with mild hydronephrosis Codey Fitzgerald MD on April 12, 2017 at 6:38 Board Certified Radiologist. This report was verified electronically.
[2017-04-12 06:44] LABS: AUTOMATED NEUTROPHIL # 3.8 TH/MM3 (1.8-7.7); BASOPHIL % 0.8 % (0.0-2.0); EOSINOPHIL # 0.1 TH/MM3 (0-0.4); EOSINOPHIL % 1.5 % (0.0-4.0); HEMATOCRIT 37.2 % (39.0-51.0); HEMO FLAGS DIFF FINAL; LYMPH % 26.2 % (9.0-44.0); LYMPHOCYTE # 1.7 TH/MM3 (1.0-4.8); MEAN CORPUSCULAR HEMOGLOBIN 29.5 PG (27.0-34.0); MEAN CORPUSCULAR HGB CONC 35.1 % (32.0-36.0); MONO % 11.3 % (0.0-8.0); NEUT % 60.2 % (16.0-70.0); PLATELET COUNT 210 TH/MM3 (150-450); RED BLOOD COUNT 4.43 MIL/MM3 (4.50-5.90); RED CELL DISTRIBUTION WIDTH 13.4 % (11.6-17.2); WHITE BLOOD COUNT 6.3 TH/MM3 (4.0-11.0)
--- NOTE | 2017-04-12 07:26 | PD ---
Physical Exam Date Seen by Provider: Apr 12, 2017 Time Seen by Provider: 07:00 Narrative The patient was signed out to me at change of shift by Dr. Aj. The patient presented with suprapubic pain and discomfort. Concern was that he likely had a kidney stone. At change of shift, a CAT scan did return showing a 2 mm ureteral stone with mild hydronephrosis. The CMP was pending at the time of signout. Data Data Last Documented VS Vital Signs Date Time Temp Pulse Resp B/P (MAP) Pulse Ox O2 Delivery O2 Flow Rate FiO2 04/12/17 08:14 16 151/85 (107) 96 Room Air 04/12/17 06:25 78 04/12/17 05:36 97.7 Orders Orders Sodium Chlor 0.9% 1000 Ml Inj (Ns 1000 M (04/12/17 05:45) Ketorolac Inj (Toradol Inj) (04/12/17 05:45) Ct Abd/Pel W/O Iv Contrast (04/12/17 ) Complete Blood Count With Diff (04/12/17 06:13) Comprehensive Metabolic Panel (04/12/17 06:13) Lipase (04/12/17 06:13) Potassium Chloride Eff (K-Lyte Cl Eff) (04/13/17 09:00) Labs Laboratory Tests Test 04/12/17 06:15 White Blood Count 6.3 TH/MM3 Red Blood Count 4.43 MIL/MM3 Hemoglobin 13.1 GM/DL Hematocrit 37.2 % Mean Corpuscular Volume 84.0 FL Mean Corpuscular Hemoglobin 29.5 PG Mean Corpuscular Hemoglobin Concent 35.1 % Red Cell Distribution Width 13.4 % Platelet Count 210 TH/MM3 Mean Platelet Volume 7.2 FL Neutrophils (%) (Auto) 60.2 % Lymphocytes (%) (Auto) 26.2 % Monocytes (%) (Auto) 11.3 % Eosinophils (%) (Auto) 1.5 % Basophils (%) (Auto) 0.8 % Neutrophils # (Auto) 3.8 TH/MM3 Lymphocytes # (Auto) 1.7 TH/MM3 Monocytes # (Auto) 0.7 TH/MM3 Eosinophils # (Auto) 0.1 TH/MM3 Basophils # (Auto) 0.0 TH/MM3 CBC Comment DIFF FINAL Differential Comment Blood Urea Nitrogen 17 MG/DL Creatinine 1.06 MG/DL Random Glucose 222 MG/DL Total Protein 7.5 GM/DL Albumin 3.8 GM/DL Calcium Level 8.5 MG/DL Alkaline Phosphatase 61 U/L Aspartate Amino Transf (AST/SGOT) 21 U/L Alanine Aminotransferase (ALT/SGPT) 36 U/L Total Bilirubin 0.5 MG/DL Sodium Level 136 MEQ/L Potassium Level 3.0 MEQ/L Chloride Level 99 MEQ/L Carbon Dioxide Level 27.0 MEQ/L Anion Gap 10 MEQ/L Estimat Glomerular Filtration Rate 72 ML/MIN Lipase 213 U/L [facility] Medical Record Reviewed: Yes Supervised Visit with RYLEE: No Interpretation(s) Last 24 hours Impressions Abdomen/Pelvis CT 04/12/17 0000 Signed Impressions: Service Date/Time: Wednesday, April 12, 2017 06:19 - CONCLUSION: 1. 2 mm distal right ureteral stone with mild hydronephrosis Codey Fitzgerald MD Narrative Course 61-year-old male with a history of previous kidney stone, presents today with complaints of suprapubic pain and discomfort. The patient was rolling from side to side in the bed consistent with previous kidney stone pain. He was seen previously by Dr. Aj who medicated him. Patient has a potassium of 3.0. His blood sugars to 22. The patient is a diabetic. I informed him that he has a small stone that is likely on its way out. He'll be given a prescription for Naprosyn 375 by mouth twice a day 5 days. He also be given 2 days of potassium replacement of 10 mg twice daily. He's been given 25 mEq times one dose here in the emergency department. The patient already sees Dr. Blair, urologist so he will be instructed to follow up with him. He is instructed to return of he develops any worsening symptoms. Diagnosis Primary Impression: Kidney calculus Additional Impression: Hypokalemia Additional Instruction: Follow up with Dr. Blair. Drink plenty of fluids. Strain urine. If you see anything that looks like a stone or piece of sand, saving plastic bag and take with you when you see Dr. Blair. Return if feeling worse, fevers chills, or any other reason. Med/Other Pt SpecificInfo: Prescription(s) given Scripts Naproxen (Naproxen) 375 Mg Tab 375 MG PO BID, #10 TAB 0 Refills Prov: Constantine Abbott MD 04/12/17 Potassium Chloride ER (K-Tab) 10 Meq Tab 10 MEQ PO BID for Electrolyte Replacement, #6 TAB 0 Refills Prov: Constantine Abbott MD 04/12/17 Disposition: 01 DISCHARGE HOME Condition: Stable Constantine Abbott MD Apr 12, 2017 07:25
[2017-04-12 07:28] LABS: ALT (GPT) 36 U/L (12-78); ANION GAP 10 MEQ/L (5-15); AST (GOT) 21 U/L (15-37); BLOOD UREA NITROGEN 17 MG/DL (7-18); CHLORIDE 99 MEQ/L (98-107); GLOMERULAR FILTRATION RATE 72 ML/MIN (>89); SODIUM (NA) 136 MEQ/L (136-145)
[2017-04-12 07:30] LABS: ALKALINE PHOSPHATASE 61 U/L (45-117); TOTAL BILIRUBIN ADULT 0.5 MG/DL (0.2-1.0)
[2017-04-12 08:14] VITALS: BP 151/85; RESP 16; O2SAT 96
[2017-04-12] MEDS ORDERED: NAPR-855 PO (09:41)
[2017-04-12] MEDS ORDERED: K-TA10TA PO (09:41)
[2017-04-12] MEDS ORDERED: POTASSIUM CHLORIDE 25 MEQ EFFERVESCENT TAB PO ONE (10:15)
[2017-04-13] MEDS ORDERED: POTASSIUM CHLORIDE 25 MEQ EFFERVESCENT TAB NG SCH (09:00)
== END 2017-04-12 11:09 | disposition home or self-care (01) ==
LOC: NEPC 05:34
DX: N13.2 Hydronephrosis with renal and ureteral calculous obstruction (principal); E87.6 Hypokalemia; M32.9 Systemic lupus erythematosus, unspecified; E78.00 Pure hypercholesterolemia, unspecified; I10 Essential (primary) hypertension; K21.9 Gastro-esophageal reflux disease without esophagitis; J45.909 Unspecified asthma, uncomplicated; M19.90 Unspecified osteoarthritis, unspecified site; F40.240 Claustrophobia
CPT/HCPCS: 74176; 80053; 83690; 85025; 96374; 99285; J1885; J7030

== ENCOUNTER 2017-12-16 18:47 | Observation (INO) ==
--- NOTE | 2017-12-16 19:17 | ED ---
HPI General Chief Complaint: Chest Pain Stated Complaint: Chest Pain Time Seen by Provider: 12/16/17 19:07 Source: patient Limitations: no limitations History of Present Illness HPI narrative: The patient is a 61 year old male who presents to the [facility] emergency department with a history of chest pain that he reports began at noon today. He reports that he was making spinach dip when it began. He denies exerting himself heavily at the time. He reports that the pain is a sharp pain in the center of his chest. He reports that it has been constant and at the same severity since the onset. He reports that he tried taking an antacid without relief although he denies having any indigestion or heartburn associated with this. He reports that he also took the prednisone. He reports that the pain is similar to when he had pleurisy in the past, however hours after taking the prednisone the symptoms continued, thus he decided to come to the emergency department. The patient does report having a history of coronary artery disease with myocardial infarction in 2015 status post stent placement. He is followed by Dr. Coon for his cardiac care. His last stress test was done in 2017. The patient reports having associated dizziness, nausea without vomiting, mild diaphoresis, and shortness of breath. He denies having any fevers or chills, cough or congestion. On review of systems otherwise, the patient denies having any neck pain, abdominal pain, diarrhea, urinary symptoms , or neurologic symptoms. MD complaint: chest pain Complete Quality Measures for STEMI Alert Patients Onset (ago): hour(s) Duration: constant Onset: during exertion Pain location: substernal Severity: severe Severity scale (1-10): 6 Quality: sharp and other Pain radiation: none Relieving factors: nothing Exacerbating factors: other (laying flat) Associated symptoms: nausea, diaphoresis, dyspnea and other (dizziness) Treatments prior to arrival chest pain: aspirin (low dose aspirin) Related Data Home Medications Medication Instructions Recorded Confirmed aspirin [Aspir-81] 81 mg PO DAILY 12/16/17 12/16/17 atorvastatin 12/16/17 cholecalciferol (vitamin D3) 2,000 unit PO DAILY 12/16/17 12/16/17 [Vitamin D3] cyclobenzaprine 10 mg PO TID 12/16/17 12/16/17 folic acid 1 mg PO DAILY 12/16/17 12/16/17 hydrocodone-acetaminophen 1 tab PO Q8H PRN 12/16/17 12/16/17 hydroxychloroquine 200 mg PO BID 12/16/17 12/16/17 lisinopril 20 mg PO DAILY 12/16/17 12/16/17 metformin 1,000 mg PO BID 12/16/17 12/16/17 metoprolol tartrate 25 mg PO BID 12/16/17 12/16/17 mycophenolate mofetil 500 mg PO BID 12/16/17 12/16/17 omeprazole 20 mg PO DAILY 12/16/17 12/16/17 tamsulosin 0.4 mg PO DAILY 12/16/17 12/16/17 Previous Rx's Medication Instructions Recorded prednisone See Label Instructions PO PER PKG 12/08/17 DIR #21 each Allergies Allergy/AdvReac Type Severity Reaction Status Date / Time morphine Allergy Severe Respiratory Verified 12/08/17 18:01 Failure Review of Systems ROS Unobtainable All other systems reviewed negative except as stated in HPI PMFSH History History Provided By: Patient Medical History Medical History Arthritis (Acute) Chronic back pain (Acute) Diabetes (Acute) Hyperlipidemia (Acute) Hypertension (Acute) Myocardial infarction (Acute) Pleurisy (Acute) Spinal stenosis (Acute) Systemic lupus (Acute) Surgical History Surgical History H/O hernia repair (Acute) History of appendectomy (Acute) History of hip surgery (Acute) Previous back surgery (Acute) S/P cardiac cath (Acute) Stented coronary artery (Acute) Social History Social History Substance History: No History of Abuse Smoking Status: Former smoker Smoking End Date: quit in 2003 How Often Do You Have a Drink Containing Alcohol: Monthly or less Recent Travel in [facility] within the Last 8 Weeks: No Recent Out of Country Travel within the Last 8 Weeks: No Exam Const General: cooperative, no acute distress and well developed Nutritional Appearance: well nourished Orientation: alert, awake and oriented x3 HENMT Head: normocephalic and atraumatic Nose: no nasal discharge and no epistaxis Mouth: oral mucosae normal and moist mucous membranes Throat: posterior oropharynx normal Eyes Sclera: normal sclerae Pupils: PERRL Neck Neck: no meningeal signs, trachea midline and no JVD Resp Effort & Inspection: no use of accessory muscles Auscultation: clear to auscultation bilaterally Cardio Rate: regular rate (No pulse deficits to the extremities on simultaneous auscultation and palpation of his radial artery) Rhythm: regular rhythm Heart Sounds: no gallops and no murmurs GI Inspection: non-distended Palpation: soft, no hepatosplenomegaly and nontender Skin General: dry skin (warm) Neuro General: alert, awake and oriented x3 Speech: speech normal Motor: no movement abnormalities noted Extrem General: normal to inspection (No calf tenderness on palpation. Negative Homans sign.), no clubbing, no cyanosis and no edema Psych Mood: congruent mood Affect: normal affect Judgment: judgment good Course Hospital Course: During the course of the patient's emergency department visit, the patient's history, examination, and differential diagnosis were reviewed with the patient. The patient was placed on a monitoring and evaluation advisor with oximetry and frequent blood pressure monitoring. The patient had IV access obtained and blood work sent for analysis. The patient was initially provided aspirin 243 mg p.o. 1 as he reports taking 81 mg of aspirin this morning. The patient was given sublingual nitroglycerin every 5 minutes 3 as needed chest pain with an initial blood pressure of 174 systolic. The patient will be given nitroglycerin 1 inch the chest wall. Patient had an initial EKG which showed a sinus rhythm heart rate of 73, QRS duration 101 ms, QTC 394 ms. There appeared to be [address] segment elevation in typical changes. The patient was also noted to have a large Q in lead III with a T-wave inversion. The patient's prior EKGs at this facility were reviewed. The patient and September 2016 last had EKGs done with similar findings, however lead to ST segment elevation may have been slightly less at 0.5 mm. A call was urgently placed out to the [facility] physical science technician on-call for this patient's physical science technician, Dr. Coon. I spoke to Dr. Harkins regarding the patient's EKG findings. As the patient's symptoms according to the patient are more consistent with his pleuritic pain, he recommended that laboratory studies be done as previously ordered. If the patient's troponin is elevated he recommends that the patient be started on heparin and be made n.p.o. after midnight in preparation for a cardiac catheterization in the morning. Reevaluation(s) Reevaluation #1: The patient was reevaluated and reported having some improvement of his symptoms. The patient's laboratory results and chest x-ray findings were discussed with him. He is agreeable with the plan for admission. Time: 20:37 Consultations Consultation #1: The patient's case including history, pertinent physical examination findings, and laboratory studies were discussed with Dr. Harkins at 1925. Time: 19:25 Initial Documented Vital Signs Temperature 98.8 F 12/16/17 18:51 Pulse Rate 77 12/16/17 18:51 Respiratory Rate 16 12/16/17 18:51 Blood Pressure 172/92 H 12/16/17 18:51 Pulse Oximetry 97 12/16/17 18:51 Last Documented Vital Signs Temperature 98.8 F 12/16/17 18:51 Pulse Rate 89 12/16/17 19:53 Respiratory Rate 17 12/16/17 19:53 Blood Pressure 123/60 12/16/17 19:53 Pulse Oximetry 98 12/16/17 19:53 Medical Decision Making MDM Narrative Medical decision making narrative: Diagnostic workup began to evaluate in discerning the differential of acute coronary syndrome, versus pleurisy, versus pneumothorax, versus pneumonia, versus new onset congestive heart failure. The patient's diagnostic evaluation is remarkable for white count of 9.9, platelets 222 with a left shift neutrophil percent 87.3, PT PTT within normal limits, chemistry is remarkable for glucose of 149, GFR of 81, chloride 97, BUN 19 hemoglobin 13.9. Troponin I is less than 0.02. CPK is 70. The patient's chest x-ray shows no acute cardiopulmonary disease. The patient's case was discussed with Dr. harkins at the onset of evaluation due to the abnormal EKG. He did recommend that if the patient's initial troponin was normal, that the patient be admitted to the chest pain center for rule out serial cardiac enzyme protocol followed by stress testing. As the patient's symptoms are similar to his pleuritic symptoms the patient was given an IV dose of Decadron for pain. The patient's results were discussed with the patient, including the plan of care. I explained that further testing and/ or monitoring is indicated based on the patient's history, examination, and/ or laboratory findings. Therefore, I recommended admission for additional evaluation. The patient expressed understanding and was agreeable with this plan. The patient was admitted to the hospital in stable condition and sent to a bed under the care of the [facility]. Differential Diagnosis Differential Diagnosis: acute coronary syndrome, versus pleurisy, versus pneumothorax, versus pneumonia, versus new onset congestive heart failure Medical Records Medical records reviewed: Yes I reviewed the patient's medical records. Lab Data Lab results reviewed: Yes I reviewed the patient's lab results. Result diagrams: 12/16/17 19:20 12/16/17 19:20 Lab Results 12/16/17 12/16/17 12/16/17 Range/Units 19:20 19:20 19:20 WBC 9.9 (4.0-11.0) th/mm3 RBC 4.80 (4.50-5.90) mil/mm3 Hgb 13.9 (13.0-17.0) gm/dL Hct 40.8 (39.0-51.0) % MCV 84.9 (80.0-100.0) fL MCH 29.0 (27.0-34.0) pg MCHC 34.1 (32.0-36.0) % RDW 13.9 (11.6-17.2) % Plt Count 222 (150-450) th/mm3 MPV 7.4 (7.0-11.0) fL Neut % (Auto) 87.3 H (16.0-70.0) % Lymph % (Auto) 5.6 L (9.0-44.0) % Kinney % (Auto) 6.6 (0.0-8.0) % Eos % (Auto) 0.4 (0.0-4.0) % Baso % (Auto) 0.1 (0.0-2.0) % Neut # (Auto) 8.6 H (1.8-7.7) th/mm3 Lymph # (Auto) 0.6 L (1.0-4.8) th/mm3 Kinney # (Auto) 0.7 (0.0-0.9) th/mm3 Eos # (Auto) 0.0 (0.0-0.4) th/mm3 Baso # (Auto) 0.0 (0.0-0.2) th/mm3 WBC Differential . Differential Comment Auto diff final PT 10.0 (9.8-11.6) sec INR 1.0 Ratio APTT 26.0 (24.3-30.1) sec Sodium 136 (136-145) meq/L Potassium 4.7 (3.5-5.1) meq/L Chloride 97 L (98-107) meq/L Carbon Dioxide 26.1 (21.0-32.0) meq/L Anion Gap 13 (5-15) meq/L BUN 19 H (7-18) mg/dL Creatinine 0.95 (0.60-1.30) mg/dL Estimated GFR 81 L (>89) mL/min Random Glucose 149 H (74-106) mg/dL Calcium 9.6 (8.5-10.1) mg/dL Magnesium 1.5 (1.5-2.5) mg/dL Total Bilirubin 0.9 (0.2-1.0) mg/dL AST 22 (15-37) U/L ALT 58 (12-78) U/L Alkaline Phosphatase 67 (45-117) U/L Total Creatine Kinase 70 (39-308) U/L Troponin I Less than 0.02 L (0.02-0.05) ng/mL B-Natriuretic Peptide (0-100) pg/mL Total Protein 7.8 (6.4-8.2) g/dL Albumin 4.0 (3.4-5.0) g/dL Lipase 251 (73-393) U/L 12/16/17 Range/Units 19:20 WBC (4.0-11.0) th/mm3 RBC (4.50-5.90) mil/mm3 Hgb (13.0-17.0) gm/dL Hct (39.0-51.0) % MCV (80.0-100.0) fL MCH (27.0-34.0) pg MCHC (32.0-36.0) % RDW (11.6-17.2) % Plt Count (150-450) th/mm3 MPV (7.0-11.0) fL Neut % (Auto) (16.0-70.0) % Lymph % (Auto) (9.0-44.0) % Kinney % (Auto) (0.0-8.0) % Eos % (Auto) (0.0-4.0) % Baso % (Auto) (0.0-2.0) % Neut # (Auto) (1.8-7.7) th/mm3 Lymph # (Auto) (1.0-4.8) th/mm3 Kinney # (Auto) (0.0-0.9) th/mm3 Eos # (Auto) (0.0-0.4) th/mm3 Baso # (Auto) (0.0-0.2) th/mm3 WBC Differential Differential Comment PT (9.8-11.6) sec INR Ratio APTT (24.3-30.1) sec Sodium (136-145) meq/L Potassium (3.5-5.1) meq/L Chloride (98-107) meq/L Carbon Dioxide (21.0-32.0) meq/L Anion Gap (5-15) meq/L BUN (7-18) mg/dL Creatinine (0.60-1.30) mg/dL Estimated GFR (>89) mL/min Random Glucose (74-106) mg/dL Calcium (8.5-10.1) mg/dL Magnesium (1.5-2.5) mg/dL Total Bilirubin (0.2-1.0) mg/dL AST (15-37) U/L ALT (12-78) U/L Alkaline Phosphatase (45-117) U/L Total Creatine Kinase (39-308) U/L Troponin I (0.02-0.05) ng/mL B-Natriuretic Peptide 12 (0-100) pg/mL Total Protein (6.4-8.2) g/dL Albumin (3.4-5.0) g/dL Lipase (73-393) U/L Imaging Data Radiologist's impression: Chest X-Ray 12/16/17 19:11 CONCLUSION: The lungs are clear. ECG Data Attestation: I personally reviewed and interpreted this ECG as follows: Prior ECG tracings: available for review Interpretation: The patient's initial EKG showed [address] segment elevation in lead his, lead III shows a large Q with T-wave inversions. This is compared to an EKG from September 2016 with similar findings, however ST segment elevation may be slightly more prominent in lead II compared to previous. The patient is in a sinus rhythm heart rate is 73, QRS duration 101 ms, QTC 394 ms. Discharge Plan Discharge Disposition Patient Disposition: 30 Still Patient Physicians Team ED Provider: Brenda Zhang Primary Care Provider: Kvng Jacobsen Rxs /Orders / Referrals /Forms Prescriptions: No Action prednisone 5 mg tablets,dose pack See Label Instructions PO PER PKG DIR Qty: 21 RF: 0 cyclobenzaprine 10 mg Tablet 10 mg PO TID RF: 0 atorvastatin 20 mg Tablet RF: 0 lisinopril 20 mg Tablet 20 mg PO DAILY RF: 0 hydrocodone-acetaminophen 10-325 mg Tablet 1 tab PO Q8H PRN (Reason: Pain) RF: 0 aspirin [Aspir-81] 81 mg Tablet,Delayed Release (Dr/Ec) 81 mg PO DAILY RF: 0 mycophenolate mofetil 500 mg Tablet 500 mg PO BID RF: 0 tamsulosin 0.4 mg Capsule,Extended Release 24hr 0.4 mg PO DAILY RF: 0 metformin 1,000 mg Tablet 1,000 mg PO BID RF: 0 omeprazole 20 mg Capsule,Delayed Release(Dr/Ec) 20 mg PO DAILY RF: 0 folic acid 1 mg Tablet 1 mg PO DAILY RF: 0 hydroxychloroquine 200 mg Tablet 200 mg PO BID RF: 0 metoprolol tartrate 25 mg Tablet 25 mg PO BID RF: 0 cholecalciferol (vitamin D3) [Vitamin D3] 2,000 unit Tablet 2,000 unit PO DAILY RF: 0 Discharge Instructions Patient Printed Instructions: Chest Pain (ED) Status ED Status: With Doctor
--- NOTE | 2017-12-16 19:49 | XR ---
EXAM DATE: 12/16/2017 7:26 PM EDT AGE/SEX: 61 years / Male INDICATIONS: . Chest Pain. CLINICAL DATA: This is the patient's initial encounter. Patient reports that signs and symptoms have been present for 1 day and indicates a pain score of 5/10. MEDICAL/SURGICAL HISTORY: . Fromer smoker. Heart attach in 2017. . Cardiac stent placement X2 COMPARISON: [facility], CHEST SINGLE AP, 09/12/2016. . FINDINGS: A single AP view of the chest demonstrates the lungs to be symmetrically aerated without evidence of mass, infiltrate or effusion. The cardiomediastinal contours are unremarkable. Healed fracture left clavicle.. CONCLUSION: The lungs are clear. Electronically signed by: Johnnie Nance MD 12/16/2017 7:47 PM EDT
[2017-12-16 19:50] LABS: Baso % (Auto) 0.1 % (0.0-2.0); Eos % (Auto) 0.4 % (0.0-4.0); Hematocrit 40.8 % (39.0-51.0); Hemoglobin 13.9 gm/dL (13.0-17.0); Lymph # (Auto) 0.6 th/mm3 (1.0-4.8); Lymph % (Auto) 5.6 % (9.0-44.0); Mean Corpuscular HGB Conc 34.1 % (32.0-36.0); Mean Corpuscular Volume 84.9 fL (80.0-100.0); Mean Platelet Volume 7.4 fL (7.0-11.0); Mono # (Auto) 0.7 th/mm3 (0.0-0.9); Mono % (Auto) 6.6 % (0.0-8.0); Neut # (Auto) 8.6 th/mm3 (1.8-7.7); Neut % (Auto) 87.3 % (16.0-70.0); Platelet Count 222 th/mm3 (150-450); Red Cell Distribution Width 13.9 % (11.6-17.2); White Blood Count 9.9 th/mm3 (4.0-11.0)
[2017-12-16 20:04] LABS: Anion Gap 13 meq/L (5-15); Aspartate Aminotransferase 22 U/L (15-37); Blood Urea Nitrogen 19 mg/dL (7-18); Calcium 9.6 mg/dL (8.5-10.1); Carbon Dioxide 26.1 meq/L (21.0-32.0); Chloride 97 meq/L (98-107); Glomerular Filtration Rate 81 mL/min (>89); Glucose,Random 149 mg/dL (74-106); Lipase 251 U/L (73-393); Magnesium 1.5 mg/dL (1.5-2.5); Potassium 4.7 meq/L (3.5-5.1); Sodium 136 meq/L (136-145)
[2017-12-16 20:10] LABS: Alanine Aminotransferase 58 U/L (12-78); Alkaline Phosphatase 67 U/L (45-117); Total Protein 7.8 g/dL (6.4-8.2)
[2017-12-16 20:16] LABS: Creatine Kinase 70 U/L (39-308)
[2017-12-16] MEDS: Sod Chloride 0.9% Inj 1,000 ML IV.CONT SCH (21:03)
[2017-12-16] MEDS: Famotidine 20 MG Tablet PO SCH (21:05)
[2017-12-16 23:41] LABS: Creatine Kinase 59 U/L (39-308)
[2017-12-17 02:52] LABS: Creatine Kinase 63 U/L (39-308)
[2017-12-17] MEDS: Famotidine 20 MG Tablet PO SCH (08:24)
[2017-12-17] MEDS ORDERED: Metoprolol Tartrate 25 MG Tablet PO SCH (09:30)
[2017-12-17] MEDS ORDERED: Lisinopril 20 MG Tablet PO SCH (09:30)
[2017-12-17] MEDS ORDERED: Pantoprazole Sodium 20 MG DR Tablet PO SCH (11:00)
--- NOTE | 2017-12-17 11:15 | P.HPCA ---
History of Present Illness Primary Care Physician: Kvng Jacobsen MD, PhD Chief Complaint: Chest pain History of Present Illness: This is a 61-year-old male who presents to ED via private vehicle with history of CAD and has had stents in the past as well as her pleurisy, hypertension, hyperlipidemia, diabetes, lupus, and spinal stenosis. For evaluation of chest discomfort that he states feels similar to when he had pleurisy as well as when he is needed stents. He states that if it is pleurisy it will usually be resolved after taking prednisone. He states he took prednisone and the discomfort did not improve. Discomfort began at noon yesterday while he is making spinach dip at home. It lasted for hours. He had associated nausea, mild diaphoresis, and shortness of breath. Currently denies chest discomfort. Cannot recall recent stress testing. Last heart catheterization follows in 2014 which time he needed a stent to the RCA. Stent to LAD was in 2010. He follows Dr. Coon of cardiology in the chest pain center. States he has had no recent stress test and no heart catheterization since the stent was placed in 2014. Denies recent illness. Voices compliance with all medications. Patient does not smoke. Patient has had heart catheterization with stenting. There is family history of CAD. - Diagnosis (1) Chest pain (2) History of coronary artery disease (3) History of heart artery stent (4) Diabetes (5) Hypertension (6) Hyperlipidemia (7) Lupus (8) Spinal stenosis (9) Pleurisy Inpatient Certification: I certify that the inpatient services were ordered in accordance with Medicare regulations governing the order. This includes certification that hospital inpatient services are reasonable and necessary and in the case of services not specified as inpatient-only under 42 CFR 419.22(n), that they are appropriately provided as inpatient services in accordance to with the 2-midnight benchmark under 43 CFR 412.3(e) Review of Systems General: Patient denies fevers, chills, and recent travel. HEENT: Patient denies headache, sore throat, difficulty swallowing. Cardiovascular: Has the chest discomfort as mentioned above. Denies sensation of heart beating rapidly or irregularly. No syncope. He was mildly diaphoretic. Respiratory: He was short of breath. Denies inspirational chest discomfort. Denies coughing wheezing or hemoptysis. GI: He was nauseous without emesis. Patient denies diarrhea, abdominal pain, and bloody stools. Musculoskeletal: Patient denies joint pain or edema. Denies calf pain or edema. Neurovascular: Patient denies numbness, tingling, weakness in extremities. Denies headache. Endocrine: Denies polyuria and polydipsia. Hematologic: Denies easy bruising. Skin: Denies rash or itching. PMFSH - History History Provided By: Patient - Medical History Medical History: Medical History (Last Updated 12/16/17 @ 19:39 by Brenda Zhang MD) Arthritis Chronic back pain Diabetes Hyperlipidemia Hypertension Myocardial infarction Pleurisy Spinal stenosis Systemic lupus - Surgical History Surgical History: Surgical History (Last Updated 12/16/17 @ 19:39 by Brenda Zhang MD) H/O hernia repair History of appendectomy History of hip surgery Previous back surgery S/P cardiac cath Stented coronary artery - Tobacco History Smoking Status: Former smoker Smoking End Date: quit in 2003 - Alcohol History How Often Do You Have a Drink Containing Alcohol: Monthly or less - Substance Use History Substance History: No History of Abuse - Travel History Recent Travel in the [place] Within the Last 8 Weeks: No Recent Travel Out of the Country Within the Last 8 Weeks: No - Immunization History Tetanus Immunization: >5 Years Hx Influenza Vaccine This Season: Yes Medications and Allergies Active Medications: Active Medications Hydrocodone Bitart/Acetaminophen ([place] 7.5/325) 1 tab PO Q4H PRN PRN Reason: PAIN SCALE 1 TO 7 Last Admin: 12/17/17 09:54 Dose: 1 tab Cyclobenzaprine HCl (Flexeril) 10 mg PO TID [facility] Famotidine (Pepcid) 20 mg PO BID [facility] Last Admin: 12/17/17 08:24 Dose: 20 mg Folic Acid (Folic Acid) 1 mg PO DAILY [facility] Sodium Chloride (Ns Inj) 1,000 mls @ 100 mls/hr IV.CONT .Q10H [facility] Last Admin: 12/16/17 21:03 Dose: 100 mls/hr Lisinopril (Prinivil) 20 mg PO DAILY [facility] Metoprolol Tartrate (Lopressor) 25 mg PO BID [facility] Nitroglycerin (Nitro-Bid 2% Oint) 1 inch TOPICAL Q6HR [facility] Last Admin: 12/17/17 08:26 Dose: Not Given Pantoprazole Sodium (Protonix) 20 mg PO DAILY [place] Sodium Chloride (Ns Flush) 2 ml IV.FLUSH UNSCH PRN PRN Reason: FLUSH AFTER USING IV ACCESS Sodium Chloride (Ns Flush) 2 ml IV.FLUSH BID [facility] Last Admin: 12/16/17 22:08 Dose: Not Given Sodium Chloride (Ns Flush) 2 ml IV.FLUSH PRN PRN PRN Reason: FLUSH AFTER USING IV ACCESS Tamsulosin HCl (Flomax) 0.4 mg PO DAILY [facility] Allergies Allergy/AdvReac Type Severity Reaction Status Date / Time morphine Allergy Severe Respiratory Verified 12/08/17 18:01 Failure Home Medications Medication Instructions Recorded Confirmed Type aspirin [Aspir-81] 81 mg PO DAILY 12/16/17 12/17/17 History atorvastatin 12/16/17 History cholecalciferol (vitamin D3) 2,000 unit PO DAILY 12/16/17 12/17/17 History [Vitamin D3] cyclobenzaprine 10 mg PO TID 12/16/17 12/17/17 History folic acid 1 mg PO DAILY 12/16/17 12/17/17 History hydrocodone-acetaminophen 1 tab PO Q8H PRN 12/16/17 12/17/17 History hydroxychloroquine 200 mg PO BID 12/16/17 12/17/17 History lisinopril 20 mg PO DAILY 12/16/17 12/17/17 History metformin 1,000 mg PO BID 12/16/17 12/17/17 History metoprolol tartrate 25 mg PO BID 12/16/17 12/17/17 History mycophenolate mofetil 500 mg PO BID 12/16/17 12/17/17 History omeprazole 20 mg PO DAILY 12/16/17 12/17/17 History tamsulosin 0.4 mg PO DAILY 12/16/17 12/17/17 History Exam Vital signs: Vital Signs 12/16/17 18:51 12/16/17 19:30 12/16/17 19:41 Temperature 98.8 F Pulse Rate 77 97 H Respiratory Rate 16 19 Blood Pressure 172/92 H 179/90 H Pulse Oximetry 97 93 L 96 12/16/17 19:45 12/16/17 19:48 12/16/17 19:53 Temperature Pulse Rate 89 89 Respiratory Rate 19 17 Blood Pressure 123/63 123/60 Pulse Oximetry 98 96 98 12/16/17 20:56 12/16/17 21:05 12/16/17 22:08 Temperature Pulse Rate 67 Respiratory Rate 18 16 17 Blood Pressure 107/62 Pulse Oximetry 96 12/16/17 22:11 12/17/17 01:00 12/17/17 04:00 Temperature Pulse Rate 61 72 59 L Respiratory Rate 18 17 16 Blood Pressure 104/61 110/64 109/58 L Pulse Oximetry 98 96 12/17/17 08:00 Temperature 97.4 F L Pulse Rate 70 Respiratory Rate 16 Blood Pressure 122/66 Pulse Oximetry 95 Intake & Output 12/16/17 12/17/17 12/17/17 18:59 06:59 18:59 Weight 102.965 kg Narrative: GENERAL: This is a well-nourished, well-developed patient, in no apparent distress. Patient speaks in clear complete sentences. Patient is pleasant. HEENT: Head is atraumatic and normocephalic. Neck is supple without lymphadenopathy and trachea is midline. No JVD or carotid bruits. CARDIOVASCULAR: Regular rate and rhythm without murmurs, gallops, or rubs. RESPIRATORY: Clear to auscultation. Breath sounds equal bilaterally. No wheezes , rales, or rhonchi. Chest wall is nontender. No use of accessory muscles. GASTROINTESTINAL: Abdomen is nontender, nondistended. Abdomen soft. No obvious pulsatile mass or bruit. No CVA tenderness. Strong femoral pulses bilaterally. Normal bowel sounds in all quadrants. MUSCULOSKELETAL: Patient is moving upper and lower extremities freely. No calf tenderness or edema, no Homans sign. Strong pulses in upper and lower extremities. NEUROLOGICAL: Patient is alert and oriented. Cranial nerves 2-12 are grossly intact. No focal deficits and speech is clear. SKIN: No rash and turgor is normal. Results 12/16/17 19:20 12/16/17 19:20 Cardiac Enzymes 12/16/17 12/16/17 12/16/17 Range/Units 19:20 19:20 22:48 AST 22 (15-37) U/L Troponin I Less than 0.02 L Less than 0.02 L (0.02-0.05) ng/mL B-Natriuretic Peptide 12 (0-100) pg/mL 12/17/17 Range/Units 02:10 AST (15-37) U/L Troponin I Less than 0.02 L (0.02-0.05) ng/mL B-Natriuretic Peptide (0-100) pg/mL Coagulation 12/16/17 12/16/17 Range/Units 19:20 19:20 PT 10.0 (9.8-11.6) sec APTT 26.0 (24.3-30.1) sec B-Natriuretic Peptide 12 (0-100) pg/mL CBC 12/16/17 Range/Units 19:20 WBC 9.9 (4.0-11.0) th/mm3 RBC 4.80 (4.50-5.90) mil/mm3 Hgb 13.9 (13.0-17.0) gm/dL Hct 40.8 (39.0-51.0) % Plt Count 222 (150-450) th/mm3 Neut # (Auto) 8.6 H (1.8-7.7) th/mm3 Lymph # (Auto) 0.6 L (1.0-4.8) th/mm3 [place] # (Auto) 0.7 (0.0-0.9) th/mm3 Eos # (Auto) 0.0 (0.0-0.4) th/mm3 Baso # (Auto) 0.0 (0.0-0.2) th/mm3 Comprehensive Metabolic Panel 12/16/17 Range/Units 19:20 Sodium 136 (136-145) meq/L Potassium 4.7 (3.5-5.1) meq/L Chloride 97 L (98-107) meq/L Carbon Dioxide 26.1 (21.0-32.0) meq/L BUN 19 H (7-18) mg/dL Creatinine 0.95 (0.60-1.30) mg/dL Calcium 9.6 (8.5-10.1) mg/dL AST 22 (15-37) U/L ALT 58 (12-78) U/L Alkaline Phosphatase 67 (45-117) U/L Total Protein 7.8 (6.4-8.2) g/dL Albumin 4.0 (3.4-5.0) g/dL Intake and Output 12/16/17 12/17/17 12/17/17 22:59 06:59 14:59 Other: Weight 102.965 kg EKG interpretations - EKG EKG shows: sinus rhythm (EKGs have been sinus rhythm without significant ST segment depressions or elevations.) Caprini VTE Risk Assessment Caprini VTE Risk Assessment: No/Low Risk (score <= 1) Caprini Risk Assessment Model: Point Value = 1 Point Value = 2 Point Value = 3 Point Value = 5 Age 41-60 Minor surgery BMI > 25 kg/m2 Swollen legs Varicose veins or History of unexplained or recurrent spontaneous Oral contraceptives or hormone replacement Sepsis (< 1 month) Serious lung disease, including pneumonia (< 1 month) Abnormal pulmonary function Acute myocardial infarction Congestive heart failure (< 1 month) History of inflammatory bowel disease Medical patient at bed rest Age 61-74 Arthroscopic surgery Major open surgery (> 45 min) Laparoscopic surgery (> 45 min) Malignancy Confined to bed (> 72 hours) Immobilizing plaster cast Central venous access Age >= 75 History of VTE Family history of VTE Factor V Leiden Prothrombin [id number] Lupus anticoagulant Anticardiolipin antibodies Elevated serum homocysteine Heparin-induced thrombocytopenia Other congenital or acquired thrombophilia Stroke (< 1 month) Elective arthroplasty Hip, pelvis, or leg fracture Acute spinal cord injury (< 1 month) Prophylaxis Regimen: Total Risk Factor Score Risk Level Prophylaxis Regimen 0-1 Low Early ambulation 2 Moderate Order ONE of the following: *Sequential Compression Device (SCD) *Heparin 5000 units SQ BID 3-4 Higher Order ONE of the following medications: *Heparin 5000 units SQ TID *Enoxaparin/Lovenox 40 mg SQ daily (WT < 150 kg, CrCl > 30 mL/min) *Enoxaparin/Lovenox 30 mg SQ daily (WT < 150 kg, CrCl > 10-29 mL/min) *Enoxaparin/Lovenox 30 mg SQ BID (WT < 150 kg, CrCl > 30 mL/min) AND/OR *Sequential Compression Device (SCD) 5 or more Highest Order ONE of the following medications: *Heparin 5000 units SQ TID (Preferred with Epidurals) *Enoxaparin/Lovenox 40 mg SQ daily (WT < 150 kg, CrCl > 30 mL/min) *Enoxaparin/Lovenox 30 mg SQ daily (WT < 150 kg, CrCl > 10-29 mL/min) *Enoxaparin/Lovenox 30 mg SQ BID (WT < 150 kg, CrCl > 30 mL/min) AND *Sequential Compression Device (SCD) Assessment and Plan - Assessment (1) Chest pain Code(s): R07.9 - Chest pain, unspecified Status: Acute (2) History of coronary artery disease Code(s): Z86.79 - Personal history of other diseases of the circulatory system Status: Acute (3) History of heart artery stent Code(s): Z95.5 - Presence of coronary angioplasty implant and graft Status: Acute (4) Diabetes Code(s): E11.9 - Type 2 diabetes mellitus without complications Status: Acute (5) Hypertension Code(s): I10 - Essential (primary) hypertension Status: Acute (6) Hyperlipidemia Code(s): E78.5 - Hyperlipidemia, unspecified Status: Acute (7) Lupus Code(s): L93.0 - Discoid lupus erythematosus Status: Acute (8) Spinal stenosis Code(s): M48.00 - Spinal stenosis, site unspecified Status: Acute (9) Pleurisy Code(s): R09.1 - Pleurisy Status: Acute - Plan * Chest pain: Patient has had serial cardiac enzymes and EKGs for ruling out purposes and was seen by Dr. Ibarra cardiology in the chest pain center. Further plan is pending conversation with Dr. 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 * CAD with history of stents: We will reassess stress testing or other testing during this admission. He will need follow-up with his employee's representative. Continues medications. * Hypertension: Continue medication. * Hyperlipidemia: Continue medication. * Diabetes: Sliding scale insulin coverage resume medication at discharge. * Pleurisy: Continue follow-up with his PCP. * Stated history of spinal stenosis: Follow-up with PCP. Provide analgesia. * Lupus: Continue treatment as directed by his physician. Patient is stable at this time. He is agreeable to this plan.
[2017-12-17] MEDS: Sod Chloride 0.9% Inj 1,000 ML IV.CONT SCH (11:29)
[2017-12-17] MEDS ORDERED: Insulin NovoLIN Regular Correctional Sugar Inj SQ SCH (12:00)
[2017-12-17] MEDS ORDERED: Regadenoson Inj 0.4 MG/5 ML Syringe IV.PUSH ONE (14:37)
--- NOTE | 2017-12-17 16:24 | NM ---
EXAM DATE: 12/17/2017 3:55 PM EDT AGE/SEX: 61 years / Male INDICATIONS:Coronary artery disease. Myocardial infarction Chest pain. CLINICAL DATA: This is the patient's initial encounter. Patient reports that signs and symptoms have been present for 2 days and indicates a pain score of 4/10. MEDICAL/SURGICAL HISTORY: Diabetes mellitus type II. Hypertension. Fusion, lumbar. Inguinal h ernia repair. Back and hip surgery. COMPARISON: [facility], MYOCARDIAL PERF TREADMILL SPECT, 10/13/2014. . DOSE: 11 mCi Tc 99m Myoview at rest 35 mCi [id number] at stress 0.4 mg Lexiscan STRESS SYMPTOMS: None. EJECTION FRACTION: 45 % TECHNIQUE: The patient underwent pharmacologic stress with infusion of prescribed dose. Continuous ECG tracing was monitored during stress. Gated SPECT imaging was performed after stress and conventi onal SPECT imaging was performed at rest. The examination was performed on a SPECT/CT scanner, both attenuation and non-corrected datasets were reviewed. FINDINGS: Distribution: The maximum perfused segment at stress is in the septal wall. Perfusion Study: Mildly diminished apical perfusion without evidence of redistribution. Gated Study: Mild global hypokinesis. The ejection fraction is calculated at 45%. RISK CATEGORY: Intermediate (1-3 % Annual Mortality Rate) CONCLUSION: 1. Mild LV dysfunction. 2. No evidence of ischemia. Electronically signed by: Darien Cantu MD 12/17/2017 4:22 PM EDT
--- NOTE | 2017-12-17 16:38 | TR ---
Date Performed: 12/17/2017 Time Performed: 14:28:04 DOCTOR: Pina Ibarra DRUG LIST: CLINICAL HISTORY: REASON FOR TEST: REASON FOR ENDING: OBSERVATION: CONCLUSION: Lexiscan stress test was performed under standard four minute protocol. Radionucl[place] e was injected one minute prior to ending the test. No electrocardiographic abormalities were present to suggest ischemia. Nuclear imaging and interpretation are pending. COMMENTS:
--- NOTE | 2017-12-17 16:43 | ECG ---
Date Performed: 12/17/2017 Time Performed: 02:20:58 PTAGE: 61 years EKG: Sinus rhythm PROBABLE INFERIOR MYOCARDIAL INFARCTION ABNORMAL ECG Since PREVIOUS TRACING , no significant change noted PREVIOUS TRACIN12/16/2017 22.57 DOCTOR: Pina Ibarra Interpretating Date/Time 12/17/2017 16:41:52
--- NOTE | 2017-12-17 16:43 | ECG ---
Date Performed: 12/16/2017 Time Performed: 22:57:34 PTAGE: 61 years EKG: Sinus rhythm INFERIOR MYOCARDIAL INFARCTION ABNORMAL ECG Since PREVIOUS TRACING , no significant change noted PREVIOUS TRACIN12/16/2017 19.10 DOCTOR: Pina Ibarra Interpretating Date/Time 12/17/2017 16:42:28
[2017-12-18] MEDS ORDERED: Folic Acid 1 MG Tablet PO SCH (09:00)
--- NOTE | 2017-12-19 12:08 | ECG ---
Date Performed: 12/16/2017 Time Performed: 19:10:43 PTAGE: 61 years EKG: Sinus rhythm INFERIOR MYOCARDIAL INFARCTION ABNORMAL ECG Since PREVIOUS TRACING , no significant change noted DOCTOR: Pina Ibarra Interpretating Date/Time 12/19/2017 12:07:26
== END 2017-12-17 18:11 | disposition home or self-care (01) ==
LOC: NEDA 18:47 → NEPFCDU 18:47 → NEPE 18:47 → NEDA 12-17 01:34 → NEDH 12-17 02:14 → NEPFCDU 12-17 10:50
PROVIDERS: ADMIT Internal Medicine Cardiovascular Disease; ATTEND Internal Medicine Cardiovascular Disease